=== PATIENT | female | born 1980 | race American Indian/Alaskan Native ===

== ENCOUNTER 2020-10-12 18:04 | Emergency (ER) | payer BC ==
[2020-10-12 18:24] VITALS: BP 139/93
[2020-10-12] MEDS ORDERED: traMADol 50 MG TAB PO ONE (20:18)
--- NOTE | 2020-10-12 20:24 | Emergency Department Report ---
ED General Adult HPI - General Chief complaint: Laceration/Recheck/Suture Stated complaint: LAC TWO MIDDLE FINGERS RT Time Seen by Provider: 10/12/20 19:57 Source: patient Mode of arrival: Ambulatory Limitations: No Limitations - History of Present Illness Initial comments: Patient 40-year-old female who presents for right third and fourth finger tip laceration versus partial avulsion. Patient states she was slicing onions with an onion slicer and scraped her hand. This caused bleeding inflamed. Bleeding was controlled by direct pressure. Patient states recent tetanus 2 years ago. Pain is rated at 4/10. There is no nerve muscle or tendon damage. Range of motion is intact and unrestricted damage - Related Data Previous Rx's Medication Instructions Recorded Last Taken Type Metoprolol [Lopressor TAB] 25 mg PO BID #60 tablet 01/21/15 Unknown Rx traMADoL [Ultram] 50 mg PO Q6HR PRN #12 tablet 10/12/20 Unknown Rx Allergies Allergy/AdvReac Type Severity Reaction Status Date / Time No Known Allergies Allergy Unverified 01/21/15 16:37 ED Review of Systems ROS: Stated complaint: LAC TWO MIDDLE FINGERS RT Other details as noted in HPI Constitutional: denies: chills, fever Eyes: denies: eye pain, eye discharge, vision change ENT: denies: ear pain, throat pain Respiratory: denies: cough, shortness of breath, wheezing Cardiovascular: denies: chest pain, palpitations Endocrine: no symptoms reported Gastrointestinal: denies: abdominal pain, nausea, diarrhea Genitourinary: denies: urgency, dysuria, discharge Musculoskeletal: other (right middle and index finger tip laceratsions) Skin: other (lacs as above ). denies: rash, lesions Neurological: as per HPI Psychiatric: denies: anxiety, depression Hematological/Lymphatic: denies: easy bleeding, easy bruising ED Past Medical Hx - Past Medical History Previous Medical History?: Yes Hx Hypertension: Yes Additional medical history: SVT - Surgical History Past Surgical History?: No - Social History Smoking Status: Never Smoker - Medications Home Medications: Home Medications Medication Instructions Recorded Confirmed Last Taken Type Metoprolol [Lopressor TAB] 25 mg PO BID #60 tablet 01/21/15 Unknown Rx traMADoL [Ultram] 50 mg PO Q6HR PRN #12 tablet 10/12/20 Unknown Rx ED Physical Exam - General Limitations: No Limitations General appearance: alert, in no apparent distress - Head Head exam: Present: atraumatic, normocephalic - Eye Eye exam: Present: normal appearance, EOMI Pupils: Present: normal accommodation - ENT ENT exam: Present: mucous membranes moist - Neck Neck exam: Present: normal inspection, full ROM. Absent: tenderness - Respiratory Respiratory exam: Present: normal lung sounds bilaterally. Absent: respiratory distress - Cardiovascular Cardiovascular Exam: Present: regular rate, normal rhythm, normal heart sounds. Absent: systolic murmur, diastolic murmur, rubs, gallop - GI/Abdominal GI/Abdominal exam: Present: soft, normal bowel sounds. Absent: distended, tenderness - Rectal Rectal exam: Present: deferred - Extremities Exam Extremities exam: Present: normal inspection, full ROM, normal capillary refill. Absent: tenderness - Expanded Upper Extremity Exam Right Hand Wrist exam: Present: full ROM, laceration (right middle and index finger tip lacerations less than 1 cm, no nerve muscle or tendon damage, rom intact and unrestricec, supervisor finishing room <3 sec bilat. ). Absent: tenderness, swelling, abrasion, nail avulsion, subungual hematoma Neuro motor exam: Present: wrist extension intact, thumb opposition intact, thumb IP flexion intact, thumb adduction intact, fingers 2-5 abduction intact Neurosensory exam: Present: radial nerve intact Vascular: Present: normal capillary refill - Back Exam Back exam: Present: normal inspection, full ROM - Neurological Exam Neurological exam: Present: alert, oriented X3, CN II-XII intact, normal gait, reflexes normal. Absent: motor sensory deficit - Expanded Neurological Exam Expanded Patient oriented to: Present: person, place, time Speech: Present: fluid speech Motor strength exam: RUE: 5, LUE: 5, RLE: 5, LLE: 5 Best Eye Response ([place]): (4) open spontaneously Best Motor Response ([place]): (6) obeys commands Best Verbal Response ([place]): (5) oriented Taco Total: 15 - Psychiatric Psychiatric exam: Present: normal affect, normal mood - Skin Skin exam: Present: warm, dry, normal color, other (laceration as above ) ED Course Vital Signs 10/12/20 10/12/20 18:12 18:25 Temperature 99.2 F Pulse Rate 86 Respiratory 18 Rate Blood Pressure 139/93 O2 Sat by Pulse 99 Oximetry - Laceration /Wound Repair Right Palm Finger Wound Location: upper extremity (right finger tip index and middle ) Wound Length (cm): 1 Wound's Depth, Shape: superficial, flap Wound Explored: clean Irrigated w/ Saline (ccs): 40 Betadine Prep?: Yes Anesthesia: 1% Lidocaine Volume Anesthetic (ccs): 1 Wound Debrided: none required Wound Repaired With: Steri-strips, Dermabond Progress: Right middle index finger flap laceration is less than 1 cm each. No nerve muscle or tendon damage, [employer]IST less than 3 seconds bilateral range of motion is intact to direct confrontation without restriction. Wound cleaned with Betadine solution, anesthesia with 1% lidocaine x1 cc. Was irrigated 40 cc sterile saline, closure with Dermabond and Steri-Strip x1 each finger. It is well approximated all bleeding is controlled, CMS remains intact range of motion remains intact [employer] SPECIALIST remains less than 3 seconds bilateral , patient given wound care instructions verbalized understanding of same, including follow-up with PCP in 2 to 3 days for wound check , patient advises tetanus is up-to-date. ED Medical Decision Making - Medical Decision Making Range of motion is intact and unrestricted, but flexion and extension to direct confrontation, distal pulses intact. All bleeding is controlled, pt given wound care instructions including follow up with pcp in 2-3 days for wound check, and symptoms of infection. pt verbalized agreement and understanding of same. Laceration is repaired see procedure note. Patient be DC'd home in stable condition at this time. Critical care attestation.: If time is entered above; I have spent that time in minutes in the direct care of this critically ill patient, excluding procedure time. ED Disposition Clinical Impression: Finger laceration Qualifiers: Encounter type: initial encounter Finger: middle finger Damage to nail status: without damage Foreign body presence: without foreign body Laterality: right Qualified Code(s): S61.212A - Laceration without foreign body of right middle finger without damage to nail, initial encounter Disposition: DC-01 TO HOME OR SELFCARE Is pt being admited?: No Does the pt Need Aspirin: No Condition: Stable Instructions: Laceration Care, Adult, Nonsutured Laceration Care Additional Instructions: Take all medications as prescribed, follow-up with your doctor in 2 to 3 days f or wound check, return to emergency should symptoms worsen. Prescriptions: traMADoL [Ultram] 50 mg PO Q6HR PRN #12 tablet PRN Reason: Pain Referrals: AMY PELLETIER MD [Staff Physician] - 3-5 Days Forms: Work/School Release Form(ED) Time of Disposition: 20:38
== END 2020-10-12 22:19 | disposition home or self-care (01) ==
LOC: ED 18:04
DX: S61.214A Laceration without foreign body of right ring finger without damage to nail, initial encounter (principal); S61.210A Laceration without foreign body of right index finger without damage to nail, initial encounter; I10 Essential (primary) hypertension; Z79.899 Other long term (current) drug therapy; W26.8XXA Contact with other sharp object(s), not elsewhere classified, initial encounter; Y93.89 Activity, other specified; Y92.89 Other specified places as the place of occurrence of the external cause; Y99.8 Other external cause status
CPT/HCPCS: 99282